=== PATIENT | male | born 1965 | race Caucasian/White ===

== ENCOUNTER → 2019-10-10 | Outpatient (CLI) | payer OTHER | END | disposition home or self-care (01) | LOC: CVU 07:55 | PROVIDERS: ATTEND Internal Medicine Cardiovascular Disease | DX: I34.0 Nonrheumatic mitral (valve) insufficiency (principal); I10 Essential (primary) hypertension; Z82.49 Family history of ischemic heart disease and other diseases of the circulatory system | CPT/HCPCS: C8929; Q9957 ==

== ENCOUNTER → 2019-11-23 | Outpatient (CLI) | payer OTHER | END | disposition home or self-care (01) | LOC: CFH 11:28 | PROVIDERS: ATTEND Internal Medicine Cardiovascular Disease | DX: I21.29 ST elevation (STEMI) myocardial infarction involving other sites (principal); I21.09 ST elevation (STEMI) myocardial infarction involving other coronary artery of anterior wall; I10 Essential (primary) hypertension; Z82.49 Family history of ischemic heart disease and other diseases of the circulatory system | CPT/HCPCS: 78452; 93017; A9502 ==

== ENCOUNTER 2019-11-30 10:31 | Day surgery (SDC) | payer OTHER ==
[~2019-11-30] VITALS: Ht 182.9 cm; Wt 128.0 kg
[2019-11-30] MEDS ORDERED: ASPI-496 PO (11:36)
[2019-11-30] MEDS ORDERED: CARV6.25 PO (11:38)
[2019-11-30] MEDS ORDERED: LISI10TA2 PO (11:39)
[2019-11-30 11:40] VITALS: BP 139/100
[2019-11-30] MEDS ORDERED: LOVA40TA2 PO (11:40)
[2019-11-30 12:15] LABS: ANION GAP 6 mmol/L (5-15); BASOPHILS # (AUTO) 0.02 x10^3/uL (0-0.1); BASOPHILS % (AUTO) 0 % (0-1); CALCIUM 8.7 mg/dL (8.5-10.1); CHLORIDE 111 mmol/L (98-107); EOSINOPHILS # (AUTO) 0.09 x10^3/uL (0-0.4); EOSINOPHILS % (AUTO) 1 % (1-7); LYMPHOCYTES # (AUTO) 1.55 x10^3/uL (1-3.4); LYMPHOCYTES % (AUTO) 21 % (22-44); MD NO; MEAN CORPUSCULAR HEMOGLOBIN 29.8 pg (27.5-34.5); MEAN CORPUSCULAR VOLUME 87.8 fL (81-97); MEAN PLATELET VOLUME 9.4 fL (7.4-10.4); MONOCYTES # (AUTO) 0.47 x10^3/uL (0.2-0.8); MONOCYTES % (AUTO) 6 % (2-9); NEUTROPHILS # (AUTO) 5.26 x10^3/uL (1.8-6.8); NEUTROPHILS % (AUTO) 71 % (42-75); PLATELET COUNT 226 x10^3/uL (130-400); RED BLOOD COUNT 5.65 x10^6/uL (4.38-5.82); RED CELL DISTRIBUTION WIDTH 14.3 % (9.4-14.8)
[2019-11-30] MEDS ORDERED: BIVALIRUDIN 250 MG ONE (13:51)
[2019-11-30] MEDS ORDERED: VERAPAMIL 2.5 MG/ML, 2ML ONE (13:51)
[2019-11-30] MEDS ORDERED: MIDAZOLAM 1 MG/ML, 5ML ONE (13:51)
[2019-11-30] MEDS ORDERED: FENTANYL PF 100 MCG/2ML ONE (13:51)
[2019-11-30] MEDS ORDERED: TICAGRELOR 90 MG TABLET ONE (13:51)
[2019-11-30] MEDS ORDERED: HEPARIN 1,000 UNITS/ML, 10ML ONE (13:52)
[2019-11-30] MEDS ORDERED: LIDOCAINE-MPF 1%, 5ML ONE (13:52)
== END 2019-11-30 16:19 | disposition home or self-care (01) ==
LOC: CACL 10:31
PROVIDERS: ATTEND Internal Medicine Cardiovascular Disease
DX: R94.31 Abnormal electrocardiogram [ECG] [EKG] (principal); I10 Essential (primary) hypertension; I42.9 Cardiomyopathy, unspecified; E78.2 Mixed hyperlipidemia; Z79.82 Long term (current) use of aspirin; Z79.899 Other long term (current) drug therapy; Z82.49 Family history of ischemic heart disease and other diseases of the circulatory system
CPT/HCPCS: 36415; 80048; 85025; 93458; 99156; C1769; C1894; J1644; J2250; J3010; Q9967; J0583